=== PATIENT | female | born 1960 | race Caucasian/White ===

== ENCOUNTER 2025-08-14 14:18 | Inpatient (IN) | payer MEDICARE ==
[2025-08-14] VITALS (7 sets, daily range): BP systolic 116–133; BP diastolic 70–73; PULSE 70–87; RESP 18–20; TEMP 98.1–98.6; O2SAT 94–99
[~2025-08-14] VITALS: Ht 172.7 cm; Wt 71.3 kg
[2025-08-14 14:46] LABS: PLATELET COUNT (AUTO) 303 K/uL (150-450); RED BLOOD CELL COUNT(AUTO) 3.81 MIL/uL (4.00-5.20); RED CELL DISTRIBUTION WIDTH 27.0 % (11.5-14.5); WHITE BLOOD COUNT (AUTO) 6.8 K/uL (4.5-11.0)
[2025-08-14 14:50] LABS: CALCIUM, TOTAL 8.5 mg/dL (8.8-10.5); CREATININE 1.12 mg/dL (0.60-1.30); GLOMERULAR FILTR. RATE CALC 49 mL/min (>60); GLUCOSE,RANDOM 148 mg/dL (70-110); SODIUM SERUM 134 mmol/L (136-145); UREA NITROGEN, BLOOD 25 mg/dL (7-18)
[2025-08-14 14:58] LABS: TROPONIN I-HIGH SENSITIVITY 6 ng/L (<51)
[2025-08-14] MEDS ORDERED: ONDANSETRON HCL 4 MG/2 ML VIAL IVP PRN (15:00)
[2025-08-14] MEDS ORDERED: IPRATROPIUM BROMIDE 0.5 MG/2.5 ML NEB SOLUTION NEB PRN (15:00)
[2025-08-14] MEDS ORDERED: ALBUTEROL SULFATE 2.5 MG/0.5 ML NEB SOLUTION NEB PRN (15:00)
[2025-08-14] MEDS ORDERED: ZOLPIDEM TARTRATE 5 MG TABLET PO PRN (15:00)
[2025-08-14] MEDS ORDERED: BISACODYL 10 MG RECTAL RECTAL SUPPOSITORY PR PRN (15:00)
[2025-08-14] MEDS ORDERED: MAGNESIUM HYDROXIDE SUSPENSION 30 ML UDCUP PO PRN (15:00)
[2025-08-14] MEDS ORDERED: ACETAMINOPHEN 325 MG TABLET PO PRN (15:00)
[2025-08-14] MEDS ORDERED: HYDROCODONE/ACETAMINOPHEN 5-325 MG TABLET PO PRN (15:00)
[2025-08-14] MEDS ORDERED: MORPHINE SULFATE 4 MG/ML SYRINGE IVP PRN (15:00)
[2025-08-14] MEDS: IPRATROPIUM BROMIDE 0.5 MG/2.5 ML NEB SOLUTION NEB ONE (15:12)
[2025-08-14] MEDS: ALBUTEROL SULFATE 2.5 MG/0.5 ML 5 ML NEB SOLUTION NEB ONE (15:12)
[2025-08-14 15:16] LABS: RBC MORPHOLOGY COMMENT DIMORPHIC RBC
[2025-08-14] MEDS: CefTRIAXone 1 GM/DEXTROSE 50 ML IV SCH (15:43)
[2025-08-14] MEDS: AZITHROMYCIN 500 MG/NS 250 ML IV SCH (16:46)
[2025-08-14] MEDS: HEPARIN SODIUM,PORCINE 5,000 UNITS/ML VIAL SQ SCH (16:46)
[2025-08-14] MEDS: BENZONATATE 100 MG CAPSULE PO SCH (16:47)
[2025-08-14] MEDS: GuaiFENesin SR 600 MG ER TABLET PO SCH (21:00)
[2025-08-14] MEDS: DOCUSATE SODIUM 100 MG CAPSULE PO SCH (21:00)
[2025-08-14] MEDS: IPRATROPIUM BROMIDE 0.5 MG/2.5 ML NEB SOLUTION NEB SCH (21:20)
[2025-08-14] MEDS: ALBUTEROL SULFATE 2.5 MG/0.5 ML NEB SOLUTION NEB SCH (21:20)
[2025-08-14] MEDS: BUDESONIDE 0.5 MG/2 ML NEB SOLUTION NEB SCH (21:20)
[2025-08-15] VITALS (8 sets, daily range): BP systolic 126–142; BP diastolic 70–86; PULSE 73–88; RESP 18–20; TEMP 97.5–98.1; O2SAT 95–99
[2025-08-15] MEDS: PANTOPRAZOLE SODIUM 40 MG DR TABLET PO SCH (08:14)
[2025-08-15 09:07] LABS: PLATELET COUNT (AUTO) 281 K/uL (150-450); RED BLOOD CELL COUNT(AUTO) 3.62 MIL/uL (4.00-5.20); RED CELL DISTRIBUTION WIDTH 27.1 % (11.5-14.5); WHITE BLOOD COUNT (AUTO) 4.0 K/uL (4.5-11.0)
[2025-08-15 09:31] LABS: RBC MORPHOLOGY COMMENT DIMORPHIC RBC
[2025-08-15 12:49] LABS: CALCIUM, TOTAL 9.1 mg/dL (8.8-10.5); CREATININE 0.86 mg/dL (0.60-1.30); GLOMERULAR FILTR. RATE CALC > 60 mL/min (>60); GLUCOSE,RANDOM 158 mg/dL (70-110); SODIUM SERUM 138 mmol/L (136-145); UREA NITROGEN, BLOOD 22 mg/dL (7-18)
== END 2025-08-15 13:15 | disposition left against medical advice (07) | DRG 189 ==
LOC: EMS 14:18 → EDH 14:49 → 5N 18:24
PROVIDERS: ADMIT Internal Medicine; ATTEND Internal Medicine
DX: J96.01 Acute respiratory failure with hypoxia (principal); J44.1 Chronic obstructive pulmonary disease with (acute) exacerbation; D63.8 Anemia in other chronic diseases classified elsewhere; R73.9 Hyperglycemia, unspecified; E78.5 Hyperlipidemia, unspecified; I10 Essential (primary) hypertension; Z53.29 Procedure and treatment not carried out because of patient's decision for other reasons; Z77.22 Contact with and (suspected) exposure to environmental tobacco smoke (acute) (chronic); I16.0 Hypertensive urgency
CPT/HCPCS: 71045; 80048; 83880; 84484; 85025; 93005; 94640; 94644; 96365; 96367; 96375; 99285; J0456; J0696; J1644; J2919; 36415-L1; 36415-TC; J7613